=== PATIENT | female | born 1990 | race Two or more races ===

== ENCOUNTER 2018-08-26 07:30 | Inpatient (IN) | payer OTHER ==
[~2018-08-26] VITALS: Ht 167.6 cm; Wt 61.2 kg
[2018-08-26] MEDS ORDERED: LACT. RINGERS/OXYTOCIN 20UNITS 1,000 ML IV ONE (07:38)
[2018-08-26] MEDS ORDERED: LACT. RINGERS/OXYTOCIN 20UNITS 1,000 ML IV SCH (07:55)
[2018-08-26] MEDS: LACTATED RINGER'S 1,000 ML IV SCH ×2 (07:55→17:52)
[2018-08-26] MEDS ORDERED: WITCH HAZEL-GLYCERIN PAD TOP PRN (08:00)
[2018-08-26] MEDS ORDERED: PHISODERM TOP SOLN 240ML BTL TOP ONE (08:00)
[2018-08-26] MEDS ORDERED: DERMOPLAST 60ML BOTTLE TOP PRN (08:00)
[2018-08-26] MEDS: LACT. RINGERS/OXYTOCIN 20UNITS 1,000 ML IV SCH ×2 (08:05→16:52)
[2018-08-26] MEDS ORDERED: LIDOCAINE 2%HCL (LOCAL ANESTH.) INJ 20ML MDV ONE (08:05)
[2018-08-26 09:29] LABS: Basophils # (auto) 0 uL; Basophils % (auto) 0.2 % (0.0-2.0); Eosinophils # (auto) 0 uL; Eosinophils % (auto) 0.1 % (0.0-7.0); Hematocrit 37.1 % (36.0-46.0); Hemoglobin 12.1 g/dL (12.2-16.2); Lymphocytes # (auto) 0.7 uL; Lymphocytes % (auto) 5.2 % (10.0-50.0); Mean Corpuscular Hemoglobin 27.1 pg (28.0-32.0); Mean Corpuscular Hgb Conc. 32.5 g/dL (32.0-36.0); Mean Corpuscular Volume 83.6 fL (80.0-100.0); Monocytes # (auto) 0.6 uL; Monocytes % (auto) 4.3 % (0.0-12.0); Neutrophils # (auto) 12.2 uL; Neutrophils % (auto) 90.2 % (37.0-80.0); Platelet Count (auto) 244 10^3/uL (140-450); Red Blood Cells 4.44 10^6/uL (4.0-5.20); Red Cell Distribution Width 14.8 % (11.8-14.3); White Blood Cell 13.5 10^3/uL (4.4-10.8)
[2018-08-26 09:41] LABS: INR < 0.93 (0.9-1.15); Partial Thromboplastin Time 22.6 sec (23.64-32.05)
[2018-08-26 09:42] LABS: Calcium 9.5 mg/dL (8.5-10.1); Potassium 4.1 mmol/L (3.5-5.1)
[2018-08-26 09:52] LABS: BUN/Creatinine Ratio 14.7; Bilirubin, Total 0.5 mg/dL (0.2-1.0); Total Protein 7.3 g/dL (6.4-8.2); Uric Acid 4.6 mg/dL (2.6-6.0)
--- NOTE | 2018-08-26 10:15 | NUR ---
Ambulation: Patient OOB with standby assistance by RN. Patient ambulated to bathroom with steady gait. Patient able to void without difficulty. [facility] teaching provided with returned demonstration by patient. Clean gown provided and bed linen changed. Patient ambulated back to bed with steady gait and no distress noted.
[2018-08-26 10:47] LABS: Fibrinogen 612 mg/dL (177-375)
--- NOTE | 2018-08-26 13:00 | NUR ---
report given andreas hall rn patient in stable condition.
--- NOTE | 2018-08-26 13:00 | NUR ---
REPORT: REPORT RECEIVED FROM KRUNAL COLEMAN TO RESUME CARE OF PT.
[2018-08-26] MEDS: IBUPROFEN 600 MG TAB PO PRN (14:19)
[2018-08-26 15:00] VITALS: BP 99/64
--- NOTE | 2018-08-26 15:01 | NUR ---
UPDATE: MEDICATED WITH MOTRIN EARLIER FOR PAIN. PAIN IS NOW GONE AND PT IS MORE COMFORTABLE. PROVIDED DETAILED EDUCATION FOR AND PROVIDED NIPPLE CREAM PER REQUEST. PATIENT CALL LIGHT IN REACH. MINIMAL BLEEDING AT TIME AND MELONY-CARE DONE BY PATIENT.
[2018-08-26 15:52] VITALS: BP 102/57
--- NOTE | 2018-08-26 15:54 | NUR ---
IV: IV REMOVED TO LEFT HAND, 20G WITH CATHETER FULLY INTACT. PT TOLERATED WELL.
--- NOTE | 2018-08-26 16:20 | NUR ---
URINE: URINE OBTAINED FOR MD ORDERS AND SENT TO LAB. PENDING RESULTS.
--- NOTE | 2018-08-26 16:23 | NUR ---
EDUCATION: EDUCATION GIVEN FOR , MELONY-CARE, POST- CARE AND CARE FOR DISCHARGE. PT VERBALIZED UNDERSTANDING.
[2018-08-26 17:25] LABS: Urine Bacteria NONE SEEN /hpf (None Seen); Urine Blood 2+ /uL (Negative); Urine Mucus FEW (None Seen); Urine Specific Gravity 1.007 (1.001-1.035); Urine WBC 4 /hpf (0 - 5)
[2018-08-26 17:28] LABS: Alcohol, Urine < 3.0 mg/dL (0-5); Amphetamine Screen, Urine NEGATIVE (NEGATIVE); Barbiturate Scree,Urine NEGATIVE (NEGATIVE); Benzodiazephine Screen, Urine NEGATIVE (NEGATIVE); Cannabinoid Screen, Urine NEGATIVE (NEGATIVE); Cocaine Screen, Urine NEGATIVE (NEGATIVE); Opiate Scree,Urine NEGATIVE (NEGATIVE); Phencyclidine Screen, Urine NEGATIVE (NEGATIVE)
--- NOTE | 2018-08-26 17:45 | NUR ---
UPDATE: PT RESTING AT TIME, NO COMPLAINTS, NO PAIN, PT HAS AMBULATED TO RESTROOM WITHOUT DIFFICULTY, WITHOUT DIFFICULTY AND EDUCATION CONTINUED TO GIVE FOR RECOVERY. AWARE THAT SHIFT CHANGE WILL BE OCCURRING SOON AND VERBALIZED UNDERSTANDING.
--- NOTE | 2018-08-26 18:13 | NUR ---
REPORT: REPORT GIVEN TO CRICKET COACH RN TO RESUME CARE OF PT.
[2018-08-26 18:30] VITALS: BP 107/66
--- NOTE | 2018-08-26 19:00 | NUR ---
Teaching: Reviewed information in [facility] booklet with patient. Discussed benefits of and risks associated with not . Discussed different positions, proper latch, feeding cues, and baby-led . Provided information of medication side effects related to . All questions and concerns addressed at this time. Patient verbalized understanding of information.
[2018-08-27] MEDS: IBUPROFEN 600 MG TAB PO PRN (00:07)
[2018-08-27 00:33] VITALS: BP 99/57
[2018-08-27 02:30] VITALS: BP 104/61
[2018-08-27] MEDS ORDERED: PREN-96 PO (03:58)
[2018-08-27 06:06] LABS: RPR Non Reactive (Non Reactive)
[2018-08-27 07:00] VITALS: BP 102/58
[2018-08-27 07:05] LABS: Rubella Antibodies, IgG 5.93 index (Immune >0.99)
--- NOTE | 2018-08-27 10:15 | NUR ---
Discharge: Discharge instructions given to mother of baby as ordered. Copies of and hearing screening, along with vaccination record given to mother. Mother encouraged to follow up with Driller Helper of choice and to give envelope with infants information to oil sprayer at 1st office visit. All questions and concerns addressed. Mother of baby verbalized understanding and agreed to comply. Mother of baby encouraged to prepare for departure and notify RN ready to leave room for ID band removal/verification and car seat check.
--- NOTE | 2018-08-27 10:15 | NUR ---
Discharge: Discharge instructions given as ordered. Pt encouraged to follow up with SOFTWARE SUPPORT ANALYST as instructed. All questions and concerns addressed. Patient verbalized understanding. Medication reconciliation completed and copy given to patient. All required/requested vaccines given and copies of vaccinations given to patient. Patient encouraged to prepare to depart unit.
--- NOTE | 2018-08-27 10:45 | NUR ---
Discharge: Patient taken to vehicle ambulatory with all personal belongings, accompanied by staff and family member. No distress noted at time of departure, no adverse changes in status since initial assessment.
== END 2018-08-27 10:45 | disposition home or self-care (01) | DRG 807 ==
LOC: LDRP 07:30
PROVIDERS: ADMIT Obstetrics & Gynecology; ATTEND Obstetrics & Gynecology
PROC: 10E0XZZ Delivery of Products of Conception, External Approach (ICD-10-PCS; principal; 2018-08-26)
DX: O32.6XX0 Maternal care for compound presentation, not applicable or unspecified (principal); Z37.0 Single live birth; Z3A.40 40 weeks gestation of pregnancy
CPT/HCPCS: 36415; 59025; 59409; 80053; 80307; 81001; 84112; 84550; 85025; 85384; 85610; 85730; 86592; 86762; 86850; 86900; 86901; 87340; 96366; G0378; J2590